=== PATIENT | female | born 2000 | race Caucasian/White ===

== ENCOUNTER 2018-11-20 02:12 | Emergency (ER) | payer OTHER ==
[~2018-11-20] VITALS: Ht 157.5 cm; Wt 72.7 kg
[~2018-11-20 02:12] MED LIST: ATIVAN 0.50.5 MG/TAB PO; LEXAPRO 10MG10 MG PO; PEPCID 20MG TAB20 MG PO; PRENATAL1 TA5 PO; ZANTAC 150MG T150 MG PO
[2018-11-20 02:18] VITALS: TEMP 99.7
[2018-11-20 02:48] LABS: COLLECTION METHOD CLEAN CATCH
[2018-11-20 02:53] LABS: PH 6 (5-8); SQUAMOUS EPITHELIAL None Seen /hpf; URINE APPEARANCE Clear; URINE BACTERIA Rare /hpf; URINE BILIRUBIN Negative (NEGATIVE); URINE BLOOD Negative (NEGATIVE); URINE COLOR Straw; URINE GLUCOSE Negative (NEGATIVE); URINE KETONE Negative (NEGATIVE); URINE LEUKOCYTE ESTERASE Negative (NEGATIVE); URINE NITRATE Negative (NEGATIVE); URINE PROTEIN(semi-quant) Negative (NEGATIVE); URINE RBC 0-2 /hpf; URINE UROBILINOGEN Negative (NEGATIVE)
[2018-11-20] MEDS ORDERED: TUMS500 MG (03:19)
[2018-11-20 03:27] LABS: BASO % 0.4 % (0.0-2.0); EOS # 0.3 (0.0-0.7); EOS % 2.9 % (0-4.0); GRAN # 5.3 (1.4-6.5); GRAN % 49.5 % (42.2-75.2); HEMOGLOBIN 11.5 g/dl (12.0-15.0); LYMPH # 3.8 (1.2-3.4); LYMPH % 35.5 % (20.0-51.0); MEAN CELL VOLUME 85 fl (80.0-95.0); MEAN CORPUSCULAR HEMOGLOBIN 28 pg (26.0-32.0); MEAN CORPUSCULAR HGB CONC 32 g/dl (33.0-37.0); MEAN PLATELET VOLUME 10.5 fl (7.4-10.4); MONO # 1.2 (0.1-0.6); MONO % 11.3 % (1.7-9.3); PLATELET COUNT 230 K/mm3 (130-400); RED BLOOD COUNT 4.18 M/mm3 (4.10-5.30); REDCELL DISTRIBUTION WIDTH-CV 13.7 % (11.5-14.5)
[2018-11-20 03:28] LABS: HEMATOCRIT 35.6 % (35.0-45.0)
[2018-11-20 03:40] LABS: ALBUMIN 4.2 gm/dL (3.5-5.0); BILIRUBIN,TOTAL 0.3 mg/dL (0.0-1.0); C-REACTIVE PROTEIN 0.6 mg/dL (0.0-0.9); CREATININE, serum 0.59 (0.52-1.25); POTASSIUM 3.9 mmol/L (3.4-5.0); TOTAL PROTEIN 7.7 gm/dL (6.4-8.2)
[2018-11-20] MEDS ORDERED: BENTYL 20MG20 MG/TAB PO (04:18)
[2018-11-20] MEDS ORDERED: PRILOTC PO (04:18)
[2018-11-20] MEDS ORDERED: ZOFRAN 4MG T4 MG/TAB PO (04:18)
[2018-11-20 04:31] VITALS: BP 100/51; PULSE 89
== END 2018-11-20 04:31 | disposition home or self-care (01) ==
LOC: COL.ER 02:12
PROVIDERS: Emergency Medicine
DX: R10.0 Acute abdomen (principal); F41.9 Anxiety disorder, unspecified
CPT/HCPCS: J1885; J2405